=== PATIENT | male | born 1970 | race Two or more races ===

== ENCOUNTER 2024-05-16 10:59 | Emergency (ER) | payer MEDICAID, OTHER ==
[~2024-05-16] VITALS: Ht 167.6 cm; Wt 79.4 kg
[2024-05-16 11:13] VITALS: BP 157/74; TEMP 98.7; O2SAT 99
[2024-05-16] MEDS ORDERED: CEPH-570 PO (12:29)
[2024-05-16] MEDS ORDERED: IBUP-1955 PO (12:29)
== END 2024-05-16 13:00 | disposition home or self-care (01) ==
LOC: ER 11:32
DX: S60.422A Blister (nonthermal) of right middle finger, initial encounter (principal); L84 Corns and callosities; I10 Essential (primary) hypertension; X58.XXXA Exposure to other specified factors, initial encounter; Y93.89 Activity, other specified; Y92.9 Unspecified place or not applicable; Y99.9 Unspecified external cause status

== ENCOUNTER 2024-09-29 11:59 | Emergency (ER) | payer MEDICAID, OTHER ==
[~2024-09-29] VITALS: Ht 170.2 cm; Wt 79.4 kg
[~2024-09-29 11:59] MED LIST: CEPH-570 PO; IBUP-1955 PO
[2024-09-29 12:11] VITALS: BP 140/80; TEMP 98.6
[2024-09-29] MEDS ORDERED: BENZ-13 PO (13:23)
[2024-09-29 13:27] VITALS: O2SAT 99
== END 2024-09-29 13:28 | disposition home or self-care (01) ==
LOC: ER 11:59
DX: J39.2 Other diseases of pharynx (principal); R05.9 Cough, unspecified; I10 Essential (primary) hypertension; Z79.899 Other long term (current) drug therapy

== ENCOUNTER 2024-11-11 14:57 | Emergency (ER) | payer OTHER ==
[~2024-11-11] VITALS: Ht 167.6 cm; Wt 80.3 kg
[~2024-11-11 14:57] MED LIST changes: +BENZ-13 PO
[2024-11-11] MEDS ORDERED: TETRAcaine 5 ML BOTTLE ONE (15:42)
[2024-11-11] MEDS ORDERED: FLUORESCEIN SODIUM OPHTH 1 EA STRIP ONE (15:42)
[2024-11-11] MEDS ORDERED: POLY15DR17 EACHEYE (15:55)
[2024-11-11] MEDS: TETRACAINE HCL 0.5% OPHTALMIC 15 ML BOTTLE OP ONE (15:58)
[2024-11-11] MEDS: FLUORESCEIN SODIUM OPHTH 1 EA STRIP OP ONE (15:58)
[2024-11-11 16:03] VITALS: BP 135/87; TEMP 98.5; O2SAT 97
== END 2024-11-11 16:03 | disposition home or self-care (01) ==
LOC: ER 15:04
DX: H11.32 Conjunctival hemorrhage, left eye (principal); I10 Essential (primary) hypertension; Z98.890 Other specified postprocedural states; Z79.899 Other long term (current) drug therapy

== ENCOUNTER 2025-03-22 20:02 | Emergency (ER) | payer OTHER ==
[~2025-03-22] VITALS: Ht 170.2 cm; Wt 79.4 kg
[~2025-03-22 20:02] MED LIST changes: +POLY15DR17 EACHEYE
[2025-03-22 20:30] VITALS: BP 133/81; TEMP 98.2
[2025-03-22 20:35] VITALS: O2SAT 99
== END 2025-03-22 20:42 | disposition home or self-care (01) ==
LOC: ER 20:05
DX: H11.32 Conjunctival hemorrhage, left eye (principal); I10 Essential (primary) hypertension